=== PATIENT | female | born 1965 | race Caucasian/White ===

== ENCOUNTER 2024-12-17 11:01 | Emergency (ER) | payer OTHER, SELFPAY ==
[2024-12-17 11:12] VITALS: BP 138/57; PULSE 75; RESP 18; TEMP 37.1; O2SAT 100
--- NOTE | 2024-12-17 11:13 | ED_ITS ---
HPI - Wound/Laceration General Stated Complaint: LT Hand sting Source: patient Mode of arrival: ambulatory Limitations: no limitations History of Present Illness HPI narrative: 59 y/o female presented for c/o reaction after insect sting yesterday. Endorses the left hand has some redness, swelling, and itching. Says after the insect sting she applied ice to the site. Says it became more itchy last night. Took ibuprofen and benadryl. Denies lip, tongue, or throat swelling, shortness of breath or wheezing, dizziness, nausea or vomiting. Related Data Home Medications ?Medication ?Instructions ?Recorded ?Confirmed ?Last Taken ?Type cetirizine 10 mg tablet mg 12/17/24 Unknown History levothyroxine 88 mcg tablet mcg 12/17/24 Unknown History (Synthroid) meloxicam 15 mg tablet mg 12/17/24 Unknown History Allergies Allergy/AdvReac Type Severity Reaction Status Date / Time Penicillins Allergy Intermediate Rash Verified 12/17/24 11:21 Sulfa (Sulfonamide Allergy Intermediate Rash Verified 12/17/24 11:21 Antibiotics) Review of Systems Review of Systems: CONSTITUTIONAL: Denies body aches, fever, chills, or sweats. EYES: Denies visual changes, redness, or discharge. ENT: Denies rhinorrhea, congestion CARDIOVASCULAR: Denies chest pain, palpitations, or edema. RESPIRATORY: Denies cough or dyspnea. GASTROINTESTINAL: Denies abdominal pain, nausea, vomiting, or diarrhea. SKIN: per HPI MUSCULOSKELETAL: Denies back pain, joint pain, or myalgia. NEUROLOGIC: Denies headache, numbness, tingling, or weakness. PMFSH Comments At time of signature, I have reviewed and agree with nursing past medical, surgical, social and family history unless otherwise noted. Please see nursing chart for further information. There is no relevant family history pertinent to the presenting complaint Exam Narrative: GENERAL: Well-appearing EYES: conjunctivae clear, and EOMI. ENT: Mucous membranes moist. Oropharynx without edema, erythema or lesions. NECK: Supple. No lymphadenopathy CHEST: Clear to auscultation. HEART: Regular rate and rhythm. SKIN: Warm, dry. Mild localized swelling, erythema and warmth over the 1st and 2nd metacarpal area, CMS intact. Pulses palpable and equal bilaterally. NEURO: Alert and oriented x3. Course Course Emergency Course: Patient is aware of diagnosis, understands and agrees to treatment plan. Anticipatory guidance given. Patient agrees to follow-up as directed and is aware of reasons to seek care at the emergency department. Portions of this record may have been created with voice recognition software Level of Care: Express Care Visit Vital Signs Vital signs: Vital Signs Temperature 98.8 F 12/17/24 11:12 Pulse Rate 75 12/17/24 11:12 Respiratory Rate 18 12/17/24 11:12 Blood Pressure 138/57 L 12/17/24 11:12 Pulse Oximetry 100 12/17/24 11:12 Oxygen Delivery Room Air 12/17/24 11:12 Temperature 98.8 F 12/17/24 11:12 Pulse Rate 75 12/17/24 11:12 Respiratory Rate 18 12/17/24 11:12 Blood Pressure 138/57 L 12/17/24 11:12 Pulse Oximetry 100 12/17/24 11:12 Oxygen Delivery Room Air 12/17/24 11:12 Reviewed MDM - Wound/Laceration MDM Narrative Medical decision making narrative: Discussed physical exam findings. Advised supportive measures and signs/symptoms to go to the ER. Pt is appropriate for outpt treatment and f/u. Differential Diagnosis Differential diagnosis: Likely other (Viral exanthema, contact dermatitis, allergic dermatitis, eczema, urticaria, insect bites, impetigo, tinea, folliculitis) Discharge Plan Discharge Clinical Impression: Accidental insect sting Patient Disposition: Home Condition: Stable Instructions: Antibiotic Form, Insect Bite or Sting (ED) Additional Instructions: Take steroids as directed. Benadryl every 8 hours as needed or Zyrtec/Claritin according to package directions You can apply Benadryl cream, calamine lotion, or Khushi Dry to the site Cool compresses to the sites of itching, avoid hot water. Avoid scratching to reduce the risk of infection Remove jewelry on the affected hand Follow up with your primary care provider as needed in 1 week Go to the ER for worsening symptoms or concerns (lip, tongue, throat swelling/itching, trouble breathing etc) Patient Language: Slovak Prescriptions: New prednisone 20 mg tablet 40 mg PO DAILY Qty: 3 0RF Follow-up/Referrals: [place], [Primary Care Provider] - Time of Disposition: 11:24
--- OUTSIDE RECORDS SUMMARY | 2024-12-17 11:53 | XMS_ITS | Encounter Summary ---
Author Organization [facility] Address [address] [address] Care Team Providers Care Enrollment Nurse Name Role Phone Unavailable Primary Care Provider Unavailabl e Encounter Details Date Type Department Care Team (Late st Contact Info) Description 07/28/2020 Lab Requisition [facility] DermPath Lab [address], [place] [address] Latonya Diop MD [address] [facility] [place] [address] [place] [address] Social History Tobacco Use Types Packs/Day Years Used Date Smoking Tobacco: Never Assessed Comments Unknown Sex and Gender Information Value Date Recorded Sex Assigned at Not on file 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 Gender Identity Not on file Sexual Orientation Not on file documented as of this encounter Plan of Treatment Not on file documented as of this encounter Procedures Procedure Name Priority Date/Time Associated Diagnosis Comments DERMATOPATHOLOGY Routine 07/27/2020 12:0 0 AM MINI BAR ATTENDANT documented in this encounter Results * DERMATOPATHOLOGY (07/27/2020 12:00 AM MINI BAR ATTENDANT) Case Report Dermatopathology Report Case: [id number] Authorizing Provider: Latonya Diop MD Collected: 07/27/2020 12:00 AM Ordering Location: [facility] Care DermPath Lab Received: 07/28/2020 09:12 AM Pathologist: Henny Durant MD Specimen: Skin, right post thigh 4:54 PM MINI BAR ATTENDANT DERMATOPATHOLOGY LABORATORY Final Diagnosis Specimen A. SKIN, right post thigh: LENTIGINOUS MELANOCYTIC NEVUS, JUNCTIONAL TYPE, IRRITATED (JUNCTIONAL MELANOCYTIC NEVUS WITH ARCHITECTURAL DISORDER) (D22.71) 4:54 PM MINI BAR ATTENDANT DERMATOPATHOLOGY LABORATORY at [address] [facility] Clinical History R/O nevus, irregular border. 4:54 PM [facility] DERMATOPATHOLOGY LABORATORY Gross Description Specimen A: Received is one formalin filled container labeled with the patient's name and designated right post thigh. The specimen consists of a shave measuring [id number]. Jar 0. 4:54 PM [facility] DERMATOPATHOLOGY LABORATORY Microscopic Description Specimen A. SKIN, right post thigh: This is a junctional nevus. There is melanin pigment in the stratum corneum. There is architectural disorder characterized by a lentiginous proliferation of melanocytes between irregular nests of cells along the dermal-epidermal junction, highlighted by MART-1/Melan-A immunohistochemical staining. There is underlying fibroplasia of the papillary dermis. (Junctional Elvis's Nevus or Junctional Dysplastic Nevus) 4:54 PM [facility] DERMATOPATHOLOGY LABORATORY Disclaimer An external and internal positive and negative controls are appropriate for the histochemical, immunohistochemical and immunofluorescence stain(s) in this case (if any), except where stated explicitly. The performance characteristics of the stain(s) cited in this report were developed and its performance characteristic determined by the Dermatopathology Laboratory at [facility], directed by Dr. Shalonda Rosales. These tests need not be, and therefore are not, approved by the [place] Food and Drug Administration. The tests are used for clinical purposes. Billing Codes Specimen Charges Stain Charges 78721 1 28168 1 4:54 PM [facility] DERMATOPATHOLOGY LABORATORY Embedded Images 4:54 PM [facility] DERMATOPATHOLOGY LABORATORY Pathology/Cytolog y TISSUE SPECIMEN FROM SKIN / Unknown 07/27/2020 07/28/2020 9:12 AM [facility] Latonya Diop MD LAB - PATHOLOGY/CYTOLOGY OR DERABLES Final Result DERMATOPATHOLOGY LABORATORY [facility] - Department of Dermatology [address] [phone] documented in this encounter Visit Diagnoses Not on filedocumented in this encounter
--- OUTSIDE RECORDS SUMMARY | 2024-12-17 11:53 | XMS_ITS | Encounter Summary ---
Author Organization [facility] Address [address] [place] [address] Care Team Providers Care Gelatin Powder Mixer Name Role Phone Unavailable Primary Care Provider Unavailabl e Encounter Details Date Type Department Care Team (Late st Contact Info) Description 10/17/[address] 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 Gender Identity Not on file Sexual Orientation Not on file documented as of this encounter Plan of Treatment Not on file documented as of this encounter Procedures Procedure Name Priority Date/Time Associated Diagnosis Comments DERMATOPATHOLOGY Routine 10/16/2018 12:0 0 AM CDT documented in this encounter Results * DERMATOPATHOLOGY (10/16/2018 12:00 AM CDT) Case Report Dermatopathology Report Case: [id number] Authorizing Provider: Latonya Diop MD Collected: 10/16/2018 12:00 AM Pathologist: Teri Boyer MD Received: 10/17/2018 08:16 AM Specimens: A) - Skin, mid abd B) - Skin, right abd 9 1:27 PM CDT DERMATOPATHOLOGY LABORATORY Final Diagnosis Specimen A. SKIN, mid abd: INTRADERMAL MELANOCYTIC NEVUS (D22.5) Specimen B. SKIN, right abd: INTRADERMAL MELANOCYTIC NEVUS (D22.5) 9 1:27 PM CDT DERMATOPATHOLOGY LABORATORY at 1326 CDT Clinical History A-B: Nevus irritated 1:27 PM CDT DERMATOPATHOLOGY LABORATORY Gross Description Specimen A: Received is one formalin filled container labeled with the patient's name and designated mid abd. The specimen consists of a shave biopsy measuring 4x4x2 mm. Jar 0. Specimen B: Received is one formalin filled container labeled with the patient's name and designated right abd. The specimen consists of a shave biopsy measuring 7x4x3 mm. Jar 0. 1:27 PM CDT DERMATOPATHOLOGY LABORATORY Microscopic Description Specimen A. SKIN, mid abd: There are nests of cytologically bland melanocytes within the dermis that mature with depth. Specimen B. SKIN, right abd: There are nests of cytologically bland melanocytes within the dermis that mature with depth. 1:27 PM CDT DERMATOPATHOLOGY LABORATORY Disclaimer An external and internal [...] purposes. Billing Codes Specimen Charges Stain Charges 08716 20897 1 1 1:27 PM CDT DERMATOPATHOLOGY LABORATORY Embedded Images 1:27 PM CDT DERMATOPATHOLOGY LABORATORY Pathology/Cytology TISSUE SPECIMEN FROM SKIN / Unknown 10/16/2018 10/17/2018 8:16 AM CDT Miscellaneous samples (specimen) TISSUE SPECIMEN FROM SKIN / Unknown 10/16/2018 10/17/2018 8:16 AM CDT us Latonya Diop MD LAB - PATHOLOGY/CYTOLOGY OR DERABLES Final Result DERMATOPATHOLOGY LABORATORY [facility] - Department of Dermatology [address] Lab [address] [phone] documented in this encounter Visit Diagnoses Not on filedocumented in this encounter
--- OUTSIDE RECORDS SUMMARY | 2024-12-17 11:53 | XMS_ITS | Clinical Summary ---
Author Organization [facility] Address [address] [place] [address] Care Team Providers Care Preschool Program Director Name Role Phone Unavailable Primary Care Provider Unavailabl e Source Comments [facility],non-owned Affiliates and Associated Physician Practices is amultiple site organization consisting of ambulatory clinics and hospital sitesin [place], [place], [place] and [place]. This disclosure is being madepursuant to the Care Everywhere program and may not contain all information available regarding this patient. 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 Gender Identity Not on file Sexual Orientation Not on file Plan of Treatment Health Maintenance Due Date Last Done Comments COLOGUARD (AGES 45-75) - COL ON CA SCREENING 1964 COLON MONITORING 1964 COLONOSCOPY - COLON CA SCREENING 1964 CT COLONOGRAPHY - COLON CA SCREENING 1964 Colorectal Cancer Screening 1964 FIT - COLON CA SCREENING 1964 FLEX SIG - COLON CA SCREENING 1964 LIPID TESTING 1964 MAMMOGRAM 1964 HIV SCREENING 1979 HEPATITIS C SCREENING 08/08/1982 DTAP/TDAP/TD VACCINES (1 - Tdap) 1983 PNEUMOCOCCAL VACCINE 50+ (1 of 1 - PCV) 2014 ZOSTER VACCINE (1 of 2) 2014 COVID-19 VACCINE ( - 2023-2 5 season) 2024 DEPRESSION SCREENING 07/01/2024 INFLUENZA VACCINE (Season Ended) 2025 Respiratory Syncytial Virus (RSV) Vaccine Pt: or over 60 yrs (1 - 1-dose 75+ series) 2039 HEPATITIS B VACCINE Aged Out No longe r eligible based on patient's age to complete this topic HIB VACCINE Aged Out No longer eligi ble based on patient's age to complete this topic HPV VACCINE Aged Out No longer eligi ble based on patient's age to complete this topic MENINGOCOCCAL (Group B) VACC INE SHARED DECISION-MAKING Aged Out No longer eligibl e based on patient's age to complete this topic MENINGOCOCCAL GROUPS A/C/Y/W VACCINE Aged Out No longer eligible b ased on patient's age to complete this topic Insurance [facility]
--- OUTSIDE RECORDS SUMMARY | 2024-12-17 11:53 | XMS_ITS | Data Portability ---
Author Organization [place] - [facility] OFFICE Address [address] [place] [address] Care Team Providers Care Senior Oracle Developer Name Role Phone [facility] Primary Care Pr ovider Assessment No assessment recorded. Plan of Treatment Reminders Order Date Submit Date Provider Last Modified By Organization Details Last Modified Time Details Appointments ESTABLISH ED PATIENT DETAILED 2024 11:00A M Jake Hoffmann i, MD Not available Not available Not available Lab None recorded. Referral None recorded. Procedures None recorded. Surgeries None recorded. Imaging electroca rdiogram 2022 023 [email or web address] Not available 04/01/2023 18:12:32 Medication Orders None recorded. Patient TargetsNo targets recorded. Patient Instructions Encounter Date Encounter Id Patient Instructions Last Modified By Organization Details Last Modified Time 01/26/2023 [id number] Exercise advised Low cholesterol diet advised Low sodium diet advised. [email or web address] Not available 01/26/2023 11:50:11 06/23/2024 [id number] Exercise advised Low cholesterol diet advised Low sodium diet advised. [email or web address] Not available 06/23/2024 11:15:57 Reason for Referral None Reported. Results Created Date Observation Date Name Description Value Unit Range Abnormal Flag Note LastModifiedBy Organization Detail LastModifiedTime 11/03/1910/06/2022 elect rocar diogr am No observ ation record ed. [email or web address] Not Available 2022 14:39:43 12/05/1911/27/2022 exerc ise stres s echoc ardio gram No observ ation record ed. [email or web address] Not Available 2022 15:10:32 01/28/20 24 01/28/2024 elect rocar diogr am No observ ation record ed. [email or web address] Not Available 2023 18:06:42 06/23/20 24 06/23/2024 yesenia pavon diogr am No observ ation record ed. [email or web address] Not Available 2023 11:27:05 Result Notes None recorded. Problems Name Problem SNOMED Code Status Onset Date Resolution Date Notes Provider Name and Address Organization Details Recorded Time Graves' disease 821298194 Active 2022 Pt has no functioni ng thyroid. Tomcyndee Stephenson null, [place] - [facility] 3 10:49:27 Palpitat ions 27814660 Active 2022 Heart palps. Tomcyndee Cogburn null, [place] - [facility] 3 10:50:10 Flutteri ng heart 654570819 Active 2022 Tomeleeshaaliyah Huntburn null, [place] - [facility] 3 10:50:29 Problem Notes None recorded. Medical Equipment None Reported. Allergies Allergen ID Allergen Name Allergen Category Reaction Reaction Severity Criticality Documentation Date Start Date Code Code System Note Provider Name and Address Organization Details Recorded Time 05837 Product containin g penicilli n (product) medicatio n rash mild low 10/30/2022 11080 8001 SNOMED [facility], [place] - [facility] 3 10:43:17 36826 Substance with sulfonami de structure and antibacte rial mechanism of action (substanc e) medicatio n rash mild low 10/30/2022 97450 8003 SNOMED [facility] null, [place] - [facility] 3 10:43:29 Medications Name Sig Start Date Stop Date Status Note LastModified by Organization Details LastModified Time cetirizine 10 mg tablet Take 1 tablet every day by oral route. active as neded Not Available Not Available Not Available meloxicam 15 mg tablet Take 1 tablet every day by oral route. active Not Available Not Available No t Available Synthroid 88 mcg tablet Take 1 tablet every day by oral route. active Not Available Not Available No t Available epinephrin e 0.3 mg/0.3 mL injection, auto-injec tor Take 1 mL as needed by injectio n route. active ALERGY SHOTS NEEDED Not Available Not Available Not Available polyethyle ne glycol 3350 17 gram/dose oral powder Take 1 g as needed by oral route. active Not Available Not Available No t Available cholecalci ferol (vitamin D3) 125 mcg (5,000 unit) capsule Take 1 capsule every day by oral route. 06/23 completed Not Available Not Available Not Available norethindr one acetate 0.5 mg-ethinyl estradiol 2.5 mcg tablet Take 2 tablets every day by oral route. active Not Available Not Available No t Available cholecalci ferol (vitamin D3) 50 mcg (2,000 unit) tablet Take 1 tablet every day by oral route. 06/23 completed Not Available Not Available Not Available Vitals Date Recorded Body height Body weight Body mass index (BMI) Heart rate Oxygen saturation Oxygen saturation in Arterial blood by Pulse oximetry Systolic blood pressure Diastolic blood pressure Provider Name and Address Organization Details Last Updated DateTime 3 160.02 cm 43332.2 2 g 21.8 kg/m2 93 /min 96 % 96 % 140 mm[Hg] 83 mm[Hg] Eldon Stephenson [facility] 3 10:42:54 Date Recorded Body height Body mass index (BMI) Body weight Heart rate Oxygen saturation Oxygen saturation in Arterial blood by Pulse oximetry Systolic blood pressure Diastolic blood pressure Provider Name and Address Organization Details Last Updated DateTime 3 160.02 cm 22.3 kg/m2 07439.5 6 g 65 /min 98 % 98 % 122 mm[Hg] 69 mm[Hg] Savannah Connor [facility] 3 11:36:02 Date Recorded Body height Body mass index (BMI) Body weight Heart rate Respiratory rate Oxygen saturation Oxygen saturation in Arterial blood by Pulse oximetry Systolic blood pressure Diastolic blood pressure Provider Name and Address Organization Details Last Updated DateTime 4 160.02 cm 19.7 kg/m2 71813.7 5 g 72 /min 16 /min 97 % 97 % 118 mm[Hg] 72 mm[Hg] Keesha Davidson [facility] 4 09:43:01 Date Recorded Body height Body mass index (BMI) Body weight Heart rate Oxygen saturation Oxygen saturation in Arterial blood by Pulse oximetry Systolic blood pressure Diastolic blood pressure Provider Name and Address Organization Details Last Updated DateTime 4 160.02 cm 19.7 kg/m2 86309.7 5 g 84 /min 98 % 98 % 116 mm[Hg] 62 mm[Hg] Keesha Davidson [facility] 4 10:46:21 Social History Question Answer Notes LastModified by Organizat ion Details LastModified Time Tobacco Smoking Status Never Smoker Aydingreciaaurora Stephenson [facility] 10/30/2022 10:53:26 Are You Blind Or Do You Have Difficulty Seeing? No Information not available 10/30/2022 What Is Your Level Of Caffeine Consumption? Moderate 2 Cups Daily Information not available 10/30/2022 In The 14 Days Before Symptom Onset, Have You Had Close Contact With A Laboratory-confir med COVID-19 While That Case Was Ill? No Information not available 10/30/2022 In The 14 Days Before Symptom Onset, Have You Had Close Contact With A Person Who Is Under Investigation For COVID-19 While That Person Was Ill? No Information not available 10/30/2022 Have You Been To An Area Known To Be High Risk For COVID-19? No Information not available 10/30/2022 Are You Deaf Or Do You Have Serious Difficulty Hearing? No Information not available 10/30/2022 What Type Of Diet Are You Following? REGULAR Information not available 10/30/2022 Have You Processed Blood Or Body Fluids From An Ebola Virus Disease Patient Without Appropriate PPE? No Information not available 10/30/2022 Do You Reside In Or Have You Traveled To An Area Where Ebola Virus Transmission Is Active? No Information not available 10/30/2022 What Is The Highest Grade Or Level Of School You Have Completed Or The Highest Degree You Have Received? [id number] Information not available 10/30/2022 Are There Any Guns Present In Your Home? Yes Information not available 10/30/2022 How Many Children Do You Have? 2 Information not available 10/30/2022 Do You Use Protection During Sex? Usually Information not available 10/30/2022 What Is Your Relationship Status? Information not available 10/30/2022 Do You Use Your Seat Belt Or Car Seat Routinely? Yes Information not available 10/30/2022 Are You Sexually Active? Yes Information not available 10/30/2022 Do You Have Smoke And Carbon Monoxide Detectors In Your Home? Yes Information not available 10/30/2022 Do You Use Sunscreen Routinely? Yes Everyday. Information not available 10/30/2022 Do You Have Difficulty Walking Or Climbing Stairs? No Information not available 10/30/2022 Sex: Unknown Functional Status Question Answer Note LastModified by Organizat ion Details LastModified Time Do you use any illicit or recreational drugs? No Information not available 10/30/2022 Do you or have you ever used any other forms of tobacco or nicotine? No Information not available 10/30/2022 What is your level of alcohol consumption? Occasional Information not available 10/30/2022 Do you have difficulty doing errands alone? No Information not available 10/30/2022 Do you have difficulty dressing or bathing? No Information not available 10/30/2022 What is your exercise level? None Information not available 10/30/2022 Mental Status Question Answer Note LastModified by Organizat ion Details LastModified Time Do you feel stressed (tense, restless, nervous, or anxious, or unable to sleep at night)? [id number] Takes pt quit awhile to fall asleep. Information not available 10/30/2022 Do you have difficulty concentrating, remembering or making decisions? No Information not available 10/30/2022 Family History Relationship Description Onset Age of this Age Resolved Age Notes LastModified by Organization Details LastModified Time Father Hypertensive disorder [email or web address] Not available 2022 10:51:14 Father Hypercholest erolemia [email or web address] Not available 2022 10:51:27 Father Acute stroke [email or web address] Not avail able 10/30/2022 10:51:43 Medical History Condition Response Stroke Y Hypertension Y High Cholesterol Y Gynecological HistoryNo gynecological history recorded. Obstetrics History GPAL:G 0 P 0 0 0 0 Past Encounters Encounter ID Performer Location Encounter Start Date Encounter Closed Date Diagnosis/Indication Diagnosis SNOMED-CT Code Diagnosis ICD10 Code Diagnosis Note [id number] Jake Lock MD [place] [facility] [place] [address] 10/30/2022 10:16:54 10/30/2022 11:38:29 Palpitations 05695521 R00.2 24 Hour Holter, to evaluate arrhythmia Mitral valve prolapse 40 1681441 I34.1 Atypical chest pain 1025 79623 R07.89 Will get exercise stress echo, to look for any structural heart disease, and to look for any ischemia [id number] Jake Lock MD [place] [facility] [place] [address] 01/26/2023 11:03:39 01/26/2023 12:15:08 Palpitations 55158313 R00.2 24 Hour Holter, to evaluate arrhythmia Mitral valve prolapse 40 9896659 I34.1 Atypical chest pain 1025 66169 R07.89 Had negative SE on 11/27/22. MVP noted. [id number] Jake Lock MD [place] [facility] [place] [address] 01/28/2024 09:31:56 01/28/2024 10:22:42 Palpitations 75824451 R00.2 24 Hour Holter, was negative Mitral valve prolapse 40 1271973 I34.1 Atypical chest pain 1025 70821 R07.89 Had negative SE on 11/27/22. MVP noted. Dyslipidemia 885723357 E 78.5 Needs to keep LDL less than 100, and HDL more than 40Will get fasting lipids for follow up [id number] Jake Lock MD [place] [facility] [address] [place] [address] 06/23/2024 10:34:08 06/23/2024 11:18:14 Palpitations 22338812 R00.2 24 Hour Holter, was negative Mitral valve prolapse 40 4999467 I34.1 Dyslipidemia 777885893 E 78.5 Needs to keep LDL less than 100, and HDL more than 40Will get fasting lipids for follow up Health Concerns Section Related Observation LastModified by Organization Detai ls LastModified Time None Recorded Concern Status LastModified by Organization Details LastModified Time None Recorded Advance Directives Directive None Recorded Payers Insurance Date Sequence Insurance Name Policy Number Policy Garland Covered Member ID Garland Member ID Guarantor Name 06/20/2024 1 [facility] [place] [facility] [place] Ayana reis [id number] Ayana armstrong Notes Date Note Type Note Provider Name and Address Organization Details Recorded Time 10/30/2022 text/html 10/30/22CC: Nick MOSELEY is 57 years-old Female, was referred for cardiac evaluation with Palpitation, she started that she feels her heart beating a lot of times Today reports:Denies chest pain.Denies shortness of breath at rest. Has mild dyspnea on exertion.No orthopnea. No PNDs.Has heart palpitations.Denies dizziness. Denies syncope or near syncope.No ankle or leg edema.No major bleeding events.No reported side effects from medications. Taking medications as prescribed with no missed doses.Denies snoring, daytime somnolence and AM headache.*Last LDL was done on .Pt takes. Jake Lock MD [address] [place], [address], [facility] 10/30/2022 11:26:00 01/26/2023 text/html 01/26/23CC : Car dia follow up, Nick MOSELEY is 57 years-old Female with h/o Palpitation is here for 1 month follow up with stress echo results. She was last seen in the clinic on 11/17/22, since then she had negative SE on 11/27/22. MVP noted.She denies ER visits and hospitalizations since she was last seen. Denies chest pain.Denies shortness of breath at rest. Has mild dyspnea on exertion.No orthopnea. No PNDs.Denies heart palpitations.Denies dizziness. Denies syncope or near syncope.No ankle or leg edema.No major bleeding events.No reported side effects from medications. Taking medications as prescribed with no missed doses.Denies snoring, daytime somnolence and AM headache.*Pt dose not have any lipid labs previously. dose not takes any statins. *Had negative SE on 11/27/22. MVP noted. Jake Lock MD [address] [place], [address], [facility] 01/26/2023 11:50:23 01/28/2024 text/html 01/28/24CC : Car dia follow up, Nick MOSELEY is 58 years-old Female with h/o Palpitation is here for 1 year follow up. She was last seen in the clinic on 01/26/23, since then she is doing well, lost 13 poundsShe denies ER visits and hospitalizations since she was last seen. Today reports:Denies chest pain.Denies shortness of breath at rest. Has mild dyspnea on exertion.No orthopnea. No PNDs.Denies heart palpitations.Denies dizziness. Denies syncope or near syncope.No ankle or leg edema.No major bleeding events.No reported side effects from medications. Taking medications as prescribed with no missed doses.Denies snoring, daytime somnolence and AM headache.*Pt dose not have any lipid labs previously. dose not takes any statins. Previously:*Had negative SE on 11/27/22. MVP noted. Jake Lock MD [address] [place], [address], [facility] 01/28/2024 10:19:37 06/23/2024 text/html 06/23/24CC : Car dia follow up, Nick MOSELEY is 58 years-old Female with h/o Palpitation is here for 6 month follow up with labs results. She was last seen in the clinic on 01/28/24, since then she is doing wellShe denies ER visits and hospitalizations since she was last seen. Denies chest pain.Denies shortness of breath at rest. Has mild dyspnea on exertion.No orthopnea. No PNDs.Denies heart palpitations.Denies dizziness. Denies syncope or near syncope.No ankle or leg edema.No major bleeding events.No reported side effects from medications. Taking medications as prescribed with no missed doses.Denies snoring, daytime somnolence and AM headache.*Last LDL was 91 done on 03/23/24.Pt dose not takes any statins. 4CMP-GL 86 BUN 13 CR 0.74 NA 142 K 4.4 CA 9.5,CK 62LIPID-CHOL 172 HDL 59 TRIG 123 LDL 91 Previously:*Had negative SE on 11/27/22. MVP noted. Jake Lock MD [address] [place], [address], [place] [facility] 06/23/2024 11:16:17 OBGyn Episode No OBEpisode recorded.
--- OUTSIDE RECORDS SUMMARY | 2024-12-17 11:54 | XMS_ITS | Patient Health Record ---
Author Organization [facility] ([address]) Address [address] [place] [address] Care Team Providers Care Binder Coverstitch Name Role Phone Hugo Jordan Primary Care Provider Unavailab Alisha Cantu Unavailable [phone] Allergies Allergen (clinical drug ingredient) Drug/Non Drug Allergy documented on EMR Reaction Allergy Type Onset Date Status Penicillin hives in high school Drug Allergy Active Reason For Referral Reason J309 Referring Provider First Name Alva Referring Provider Last Name Vitaliy Referred Organization [facility] Referred Provider Alisha Randall Referred Address [address],[place], [place],[address], Referred Provider Specialty Allergy/Immu nology Referral Priority Routine Referring Provider First Name Alva Referring Provider Last Name Vitaliy Referred Organization [facility] Referred Provider Alisha Randall Referred Address [address],[place], [place],[address], Referral Priority Routine Medications Medication SIG (Take, Route, Frequency, Duration) Notes Start Date End Date Status Norethindrone-Eth Estradiol 0.5-2.5 MG-MCG Oral for 84 Days Active EpiPen 2-En 0.3 MG/0.3ML 0.3 mg intramuscularly once for 30 day(s) Active Synthroid 88 MCG 1 tab(s) orally once a day for 30 day(s) Active ZyrTEC Allergy 10 MG 1 tab(s) orally once a day Active Flonase Allergy Relief 50 MCG/ACT 1 spray(s) intranasally once a day Active MOBIC 15 MG 1 TAB(S) ORALLY ONCE A DAY for 30 DAY(S) *Please review for potential replacement for e-prescription and drug interaction check* Active EPINEPHrine 0.3 MG/0.3ML as directed Injection as needed for 30 days 08/10/2024 Active MiraLax 17 GM/SCOOP 1 scoop mixed with 8 ounces of fluid Orally Once a day Active NASAL WASHES N/A as directed intranasally as needed for 30 Active FLONASE 50 mcg/inh 1 spray(s) intranasally once a day Active SIT (TRADITIONAL) variable per schedule SC per schedule for to be determined Active Immunizations Vaccine Route Administration Date Status Comme nts Influenza Unknown 07/01/2018 Administered Social History Tobacco Use: Social History Observation Description Date Details (start date - stop date) Never Smoker NA - NA Smoking Smart Form: Question Answer Notes Are you a: never smoker Tobacco Control (Standard) Question Answer Notes Tobacco use: Nonsmoker Problems Problem Type SNOMED Code ICD Code Onset Dates Problem Status W/U Status Risk Notes Problem Chronic allergic conjunctivitis (13625628) Other chronic allergic conjunctivitis (H10.45) Active confirmed Problem Allergic rhinitis caused by pollen (disorder) (30476371) Allergic rhinitis due to pollen (J30.1) Active confirmed Problem Allergic rhinitis (54524599) Other allergic rhinitis (J30.89) Active confirmed Problem Allergic rhinitis (42904994) Allergic rhinitis, unspecified (J30.9) Active confirmed Problem Allergic contact dermatitis caused by adhesive (disorder) (130452719) Allergic contact dermatitis due to adhesives (L23.1) Active confirmed Problem Allergic contact dermatitis caused by drug in contact with skin (302938492) Allergic contact dermatitis due to drugs in contact with skin (L23.3) Active confirmed Problem Allergic rhinitis caused by pollen (disorder) (15417649) Allergic rhinitis due to pollen (J30.1) Active confirmed Problem Allergic rhinitis caused by animal hair and dander (641928265358521) Allergic rhinitis due to animal (cat) (dog) hair and dander (J30.81) Active confirmed Problem Allergic rhinitis (32094000) Other allergic rhinitis (J30.89) Active confirmed Problem Chronic allergic conjunctivitis (33195682) Other chronic allergic conjunctivitis (H10.45) Active confirmed Problem Allergy to penicillin (79621408) Allergy status to penicillin (Z88.0) Active confirmed Vital Signs Respiratory Rate 17 /min 02/13/2024 Oximetry 100 % 08/10/2024 Blood pressure diastolic 84 mm Hg 08/10/2024 Height 63 in 08/10/2024 Blood pressure systolic 143 mm Hg 08/10/2024 Weight 119.2 lbs 08/10/2024 BMI 21.11 kg/m2 08/10/2024 Encounters Encounter Location Date Provider Diagnosis [facility] [place] [address] 01/06/2024 Alisha Randall Allergic rhinitis du e to pollen J30.1 ; Other allergic rhinitis J30.89 and Other chronic allergic conjunctivitis H10.[address] [place] [address] 02/13/2024 Alisha Randall Allergic rhinitis du e to pollen J30.1 ; Other allergic rhinitis J30.89 ; Other chronic allergic conjunctivitis H10.45 ; Allergy status to penicillin Z88.0 ; Allergic contact dermatitis due to adhesives L23.1 ; Allergic contact dermatitis due to drugs in contact with skin L23.3 and Shortness of breath R06.02 [facility] [place] [address] 03/12/2024 Alisha Randall Allergic rhinitis du e to pollen J30.1 ; Other allergic rhinitis J30.89 and Other chronic allergic conjunctivitis H10.45 [facility] [place] [address] 04/09/2024 Alisha Tonia Allergic rhinitis du e to pollen J30.1 ; Other allergic rhinitis J30.89 and Other chronic allergic conjunctivitis H10.45 [facility] [address] [facility] [place] [address] 04/16/2024 Alisha Tonia Allergic rhinitis du e to pollen J30.1 ; Other allergic rhinitis J30.89 and Other chronic allergic conjunctivitis H10.45 [facility] [place] [address] 04/22/2024 Alisha Randall Allergic rhinitis du e to pollen J30.1 ; Other allergic rhinitis J30.89 and Other chronic allergic conjunctivitis H10.45 [facility] [place] [address] [place] [address] 05/20/2024 Alisha Tonia Allergic rhinitis du e to pollen J30.1 ; Other allergic rhinitis J30.89 and Other chronic allergic conjunctivitis H10.45 [facility] [place] [address] [place] [address] 06/18/2024 Alisha Tonia Allergic rhinitis du e to pollen J30.1 ; Other allergic rhinitis J30.89 and Other chronic allergic conjunctivitis H10.45 [facility] [place] [address] [place] [address] 07/16/2024 Alisha Tonia Allergic rhinitis du e to pollen J30.1 ; Other allergic rhinitis J30.89 and Other chronic allergic conjunctivitis H10.45 [facility] [place] [address] [place] [address] 08/10/2024 Alisha Tonia Allergic rhinitis du e to pollen J30.1 ; Other allergic rhinitis J30.89 ; Other chronic allergic conjunctivitis H10.45 ; Allergy status to penicillin Z88.0 ; Allergic contact dermatitis due to adhesives L23.1 and Allergic contact dermatitis due to drugs in contact with skin L23.3 [facility] [place] [address] [place] [address] 09/07/2024 Alisha Tonia Allergic rhinitis du e to pollen J30.1 ; Other allergic rhinitis J30.89 and Other chronic allergic conjunctivitis H10.45 [facility] [place] [address] [place] [address] 10/05/2024 Alisha Tonia Allergic rhinitis du e to pollen J30.1 ; Other allergic rhinitis J30.89 and Other chronic allergic conjunctivitis H10.45 [facility] [place] [address] [place] [address] 11/02/2024 Alisha Tonia Allergic rhinitis du e to pollen J30.1 ; Other allergic rhinitis J30.89 and Other chronic allergic conjunctivitis H10.45 [facility] [place] [address] [place] [address] 12/03/2024 Alisha Randall Allergic rhinitis du e to pollen J30.1 ; Other allergic rhinitis J30.89 and Other chronic allergic conjunctivitis H10.45 [facility] [address] [place] [address] 05/20/2024 Alisha Randall Allergic rhinitis du e to pollen J30.1 Assessments Encounter Date Diagnosis (ICD Code) Assessment Notes Treatment Notes Treatment Clinical Notes Section Notes 01/06/2024 Allergic rhinitis due to pollen (ICD-10 - J30.1) 02/13/2024 Allergic rhinitis due to pollen (ICD-10 - J30.1) Ayana clearly suffers from atopic disease based upon our skin testing with sensitivity to mold and trees. Accordingly, we have introduced a new, aggressive medication regimen, discussed nasal washes and allergy-specific avoidance measures. She is tolerating SCIT without large local or systemic symptoms. She was instructed to carry her epinephrine autoinjector for 2 hours after leaving the office. Start Zyrtec and Flonase as needed. 02/13/2024 Other allergic rhinitis (ICD-10 - J30.89) Follow allergen avoidance, meds and continue SCIT as an adjunctive treatment to current regimen. 03/12/2024 Allergic rhinitis due to pollen (ICD-10 - J30.1) 04/09/2024 Allergic rhinitis due to pollen (ICD-10 - J30.1) 04/16/2024 Allergic rhinitis due to pollen (ICD-10 - J30.1) 04/22/2024 Allergic rhinitis due to pollen (ICD-10 - J30.1) 05/20/2024 Allergic rhinitis due to pollen (ICD-10 - J30.1) 05/20/2024 Allergic rhinitis due to pollen (ICD-10 - J30.1) 06/18/2024 Allergic rhinitis due to pollen (ICD-10 - J30.1) 07/16/2024 Allergic rhinitis due to pollen (ICD-10 - J30.1) 08/10/2024 Allergic rhinitis due to pollen (ICD-10 - J30.1) Ayana clearly suffers from atopic disease based upon our skin testing with sensitivity to mold and trees. Accordingly, we have introduced a new, aggressive medication regimen, discussed nasal washes and allergy-specific avoidance measures. She is tolerating SCIT without large local or systemic symptoms. She was instructed to carry her epinephrine autoinjector for 2 hours after leaving the office. 08/10/2024 Other allergic rhinitis (ICD-10 - J30.89) Follow allergen avoidance, meds and continue SCIT as an adjunctive treatment to current regimen. 09/07/2024 Allergic rhinitis due to pollen (ICD-10 - J30.1) 10/05/2024 Allergic rhinitis due to pollen (ICD-10 - J30.1) 11/02/2024 Allergic rhinitis due to pollen (ICD-10 - J30.1) 12/03/2024 Allergic rhinitis due to pollen (ICD-10 - J30.1) 12/03/2024 Other allergic rhinitis (ICD-10 - J30.89) 11/02/2024 Other allergic rhinitis (ICD-10 - J30.89) 10/05/2024 Other allergic rhinitis (ICD-10 - J30.89) 09/07/2024 Other allergic rhinitis (ICD-10 - J30.89) 07/16/2024 Other allergic rhinitis (ICD-10 - J30.89) 08/10/2024 Other chronic allergic conjunctivitis (ICD-10 - H10.45) Given ocular signs and symptoms I encouraged allergy avoidance measures and meds as above. If symptoms persist, consider adding additional medications including intraocular antihistamine/ma st cell stabilizer, PRN 06/18/2024 Other allergic rhinitis (ICD-10 - J30.89) 05/20/2024 Other allergic rhinitis (ICD-10 - J30.89) 04/22/2024 Other allergic rhinitis (ICD-10 - J30.89) 04/16/2024 Other allergic rhinitis (ICD-10 - J30.89) 04/09/2024 Other allergic rhinitis (ICD-10 - J30.89) 03/12/2024 Other allergic rhinitis (ICD-10 - J30.89) 01/06/2024 Other allergic rhinitis (ICD-10 - J30.89) 02/13/2024 Other chronic allergic conjunctivitis (ICD-10 - H10.45) Given ocular signs and symptoms I encouraged allergy avoidance measures and meds as above. If symptoms persist, consider adding additional medications including intraocular antihistamine/ma st cell stabilizer, PRN 01/06/2024 Other chronic allergic conjunctivitis (ICD-10 - H10.45) 04/09/2024 Other chronic allergic conjunctivitis (ICD-10 - H10.45) 04/16/2024 Other chronic allergic conjunctivitis (ICD-10 - H10.45) 04/22/2024 Other chronic allergic conjunctivitis (ICD-10 - H10.45) 05/20/2024 Other chronic allergic conjunctivitis (ICD-10 - H10.45) 02/13/2024 Allergy status to penicillin (ICD-10 - Z88.0) Ayana has a history of hives over 20 years ago after taking penicillin. We discussed penicillin skin testing and amoxicillin challenge 03/12/2024 Other chronic allergic conjunctivitis (ICD-10 - H10.45) 06/18/2024 Other chronic allergic conjunctivitis (ICD-10 - H10.45) 07/16/2024 Other chronic allergic conjunctivitis (ICD-10 - H10.45) 10/05/2024 Other chronic allergic conjunctivitis (ICD-10 - H10.45) 08/10/2024 Allergy status to penicillin (ICD-10 - Z88.0) Ayana has a history of hives over 20 years ago after taking penicillin. We discussed penicillin skin testing and amoxicillin challenge. She would like to have skin testing performed after she retires and more time in her schedule. 09/07/2024 Other chronic allergic conjunctivitis (ICD-10 - H10.45) 11/02/2024 Other chronic allergic conjunctivitis (ICD-10 - H10.45) 12/03/2024 Other chronic allergic conjunctivitis (ICD-10 - H10.45) 08/10/2024 Allergic contact dermatitis due to adhesives (ICD-10 - L23.1) Ayana appears to have contact dermatitis with adhesives on bandages and antibiotic ointment. She develops a rash with latex free bandaids. She tolerates balloons and other latex products without event. For now, continue avoidance. 02/13/2024 Allergic contact dermatitis due to adhesives (ICD-10 - L23.1) Ayana appears to have contact dermatitis with adhesives on bandages and antibiotic ointment. She develops a rash with latex free bandaids. She tolerates balloons and other latex products without event. For now, continue avoidance. 02/13/2024 Allergic contact dermatitis due to drugs in contact with skin (ICD-10 - L23.3) Continue avoidance of antibiotic ointment. Patch testing if needed in the future. 08/10/2024 Allergic contact dermatitis due to drugs in contact with skin (ICD-10 - L23.3) Continue avoidance of antibiotic ointment. Patch testing if needed in the future. 02/13/2024 Shortness of breath (ICD-10 - R06.02) No further episodes and no use of albuterol. Spirometry was normal at last check 02/13/2024 Other 08/10/2024 Other Plan Of Treatment Next Appt Details Provider Name:Alisha casey, 12/31/2024 10:40:00 AM, [address] [place] [address], [address], Provider Name:Alisha casey, 02/01/2025 10:30:00 AM, [address] [place], [place] [address], [address], Insurance Providers Payer Name Payer Address Payer Phone Subscriber Number Group Number Insured Name Patient Relationship to Insured Coverage Start Date Coverage End Date [facility] [place] [address] [place] [address] [id number] Adalberto Franco Spouse - patient is the spouse of the insured 5 Medical (General) History Medical History History ICD Code Allergy status to penicillin Hypothyroidism, unspecified Allergic rhinitis due to pollen J30.1 Allergy status to penicillin Z88.0 Other allergic rhinitis J30.89 Allergic contact dermatitis due to adhes dimitri L23.1 Other chronic allergic conjunctivitis H1 0.45 Surgical History Surgery Date(Month/Year)
== END 2024-12-17 11:28 | disposition home or self-care (01) ==
PROVIDERS: Emergency Provider Nurse Practitioner Family
DX: T63.481A Toxic effect of venom of other arthropod, accidental (unintentional), initial encounter (principal)
CPT/HCPCS: 99203; G0463